=== PATIENT | female | born 1990 | race Caucasian/White ===

== ENCOUNTER 2016-09-10 18:32 | Emergency (ER) | payer OTHER ==
[2016-09-10 18:51] VITALS: RESP 16
[2016-09-10] MEDS ORDERED: Sodium Chloride 0.9% 1,000 ML IV ONE (19:24)
--- NOTE | 2016-09-10 19:26 | C.PDOC ---
History Of Present Illness 25 yo female, hx of ovarian cysts, presents wtih abdomianl pain/cp since yesterday. pt states intermittant epigastric pain, radiating to herchest, worse with eating. also c/o of mild b/l "pelvic pain". pt reports long standing h/o of ovarian cysts. no fevers, no diarrhea. lmp "last week" no vb, discharge Time Seen by Provider: 09/10/16 19:20 Chief Complaint (Nursing): Chest Pain Past Medical History Reviewed: Historical Data, Nursing Documentation, Vital Signs Vital Signs: Last Vital Signs Temp 98.3 F 09/10/16 20:57 Pulse 72 09/10/16 20:57 Resp 16 09/10/16 20:57 BP 112/72 09/10/16 20:57 Pulse Ox 100 09/10/16 20:57 - Medical History PMH: Arthritis, Asthma, Rheumatoid Arthritis Family History: States: Unknown Family Hx - Social History Hx Tobacco Use: No Hx Alcohol Use: No Hx Substance Use: No - Immunization History Hx Tetanus Toxoid Vaccination: No Hx Influenza Vaccination: No Hx Pneumococcal Vaccination: No Review Of Systems Gastrointestinal: Positive for: Nausea, Abdominal Pain. Negative for: Vomiting Physical Exam - Physical Exam Appears: Well, No Acute Distress Skin: Normal Color, Warm, Dry Eye(s): bilateral: Normal Inspection, PERRL, EOMI Nose: Normal Throat: Normal Neck: Normal Cardiovascular: Rhythm Regular Respiratory: Normal Breath Sounds Gastrointestinal/Abdominal: Normal Exam, Soft, Tenderness (mild epigastric), No Guarding, No Rebound, Other (mild b/l adenxal , n orlq) Back: Normal Inspection Extremity: Normal ROM ED Course And Treatment - Laboratory Results Result Diagrams: 09/10/16 19:52 09/10/16 19:52 O2 Sat by Pulse Oximetry: 98 Medical Decision Making Medical Decision Making: suspect gastritis vs pud. also mild pelvic pain. no clinical concern for torsion as pt well appearing in nad, mild pain. pt on phone in nad. labs imaging pending [id number] cxr neg. labs unremarkable. pt w/o rlq ttp. all abdominal pain resolved. advise outpt f/u and return precaution Disposition - Disposition Referrals: [facility] [Outside] [facility] [Outside] Jesus Crawford MD [Staff Provider] - Disposition: HOME/ ROUTINE Disposition Time: 21:00 Condition: STABLE Additional Instructions: please follow up with your doctor. return to er with worsening symptoms or concerns. Prescriptions: Famotidine [Pepcid] 20 mg PO DAILY #20 tab Instructions: Acute Abdominal Pain (ED) - Clinical Impression Clinical Impression: Abdominal pain
[2016-09-10] MEDS ORDERED: Sodium Chloride 0.9% 1,000 ML ONE (19:36)
[2016-09-10 19:56] LABS: BASO % 0.6 % (0.0-2.0); EOS # 0.1 K/uL (0.0-0.7); EOS % 1.4 % (0.0-4.0); HEMOGLOBIN 13.8 g/dL (11.0-16.0); LYMPH # 2.1 K/uL (1.0-4.3); LYMPH % 29.5 % (20.0-40.0); MEAN CELL VOLUME 89.5 fL (81.0-99.0); MEAN CORPUSCULAR HEMOGLOBIN 29.8 pg (27.0-31.0); MEAN CORPUSCULAR HGB CONC 33.2 g/dL (33.0-37.0); MONO # 0.7 K/uL (0.0-0.8); MONO % 9.8 % (0.0-10.0); NEUT # 4.3 K/uL (1.8-7.0); NEUT % 58.7 % (50.0-75.0); RBC 4.64 Mil/uL (3.80-5.20); RED CELL DISTRIBUTION WIDTH 13.6 % (11.5-14.5); WHITE BLOOD COUNT 7.2 K/uL (4.8-10.8)
[2016-09-10 20:01] LABS: HCG,QUALITATIVE URINE NEGATIVE (NEGATIVE)
[2016-09-10 20:03] LABS: SQUAMOUS EPITHIAL 5 /hpf (0-5); URINE BACTERIA RARE (<OCC); URINE BILIRUBIN NEGATIVE (NEGATIVE); URINE BLOOD NEGATIVE (NEGATIVE); URINE CLARITY Clear (Clear); URINE COLOR Colorless (YELLOW); URINE GLUCOSE (UA) NORMAL (Normal); URINE LEUKOCYTE ESTERASE NEG Leu/uL (Negative); URINE NITRATE NEGATIVE (NEGATIVE); URINE PROTEIN NEGATIVE (NEGATIVE); URINE UROBILINOGEN NORMAL mg/dL (0.2-1.0)
[2016-09-10 20:04] LABS: ALBUMIN 4.2 g/dL (3.5-5.0)
[2016-09-10 20:05] LABS: INR 0.9; PROTHROMBIN TIME 10.5 SECONDS (9.7-12.2)
[2016-09-10 20:06] LABS: GFR AFRICAN-AMERICAN > 60; GFR NON-AFRICAN AMERICAN > 60
[2016-09-10 20:07] LABS: ALB/GLOB RATIO 1.1 (1.0-2.1); ALT/SGPT 25 U/L (9-52); AST/SGOT 22 U/L (14-36); BLOOD UREA NITROGEN 16 mg/dL (7-17); CALCIUM 8.9 mg/dl (8.6-10.4); LIPASE 70 U/L (23-300)
[2016-09-10 21:01] VITALS: BP 112/72; PULSE 72; TEMP 98.3
[2016-09-10 21:10] VITALS: O2SAT 98
--- NOTE | 2016-09-11 08:38 | RAD ---
PROCEDURE: CHEST RADIOGRAPH, 1 VIEW HISTORY: Abdominal pain COMPARISON: 05/03/2014 FINDINGS: LUNGS: The lungs are well inflated and clear. PLEURA: No pneumothorax or pleural fluid seen. CARDIOVASCULAR: Normal. OSSEOUS STRUCTURES: No significant abnormalities. VISUALIZED UPPER ABDOMEN: Normal. OTHER FINDINGS: None. IMPRESSION: No active pulmonary disease.
--- NOTE | 2016-09-11 12:13 | CARD ---
APPROVED REPORT EKG Measurement Heart [id number] ID [id number] <Conclusion> Normal sinus rhythm Normal ECG
== END 2016-09-10 21:04 | disposition home or self-care (01) ==
LOC: C.ER 18:32
DX: R10.13 Epigastric pain (principal)
CPT/HCPCS: 71010; 80053; 81001; 83690; 84703; 85025; 85610; 85730; 93005; 96361; 96374; 96375; 99284; C9113; J2405; J7040